=== PATIENT | female | born 1990 | race Two or more races ===

== ENCOUNTER 2017-05-01 01:15 | Emergency (ER) | payer SELFPAY ==
[~2017-05-01] VITALS: Ht 157.5 cm; Wt 88.9 kg
[2017-05-01 04:40] VITALS: BP 129/82
[2017-05-01] MEDS ORDERED: BACITRACIN-POLYMYXIN B TOPICAL OINT UD TOP ONE (05:45)
== END 2017-05-01 05:59 | disposition home or self-care (01) ==
LOC: ER 01:16
DX: S51.811A Laceration without foreign body of right forearm, initial encounter (principal); W25.XXXA Contact with sharp glass, initial encounter; Y93.89 Activity, other specified; Y99.0 Civilian activity done for income or pay; Y92.098 Other place in other non-institutional residence as the place of occurrence of the external cause
CPT/HCPCS: 12001; 12031

== ENCOUNTER 2017-08-21 18:50 | Emergency (ER) | payer SELFPAY ==
[~2017-08-21] VITALS: Ht 154.9 cm; Wt 88.5 kg
[2017-08-21 20:05] VITALS: BP 146/88
[2017-08-21] MEDS ORDERED: KETOROLAC TROMETH 60MG/2ML VIAL IM ONE (20:15)
== END 2017-08-21 21:00 | disposition home or self-care (01) ==
LOC: ER 18:51
DX: M54.9 Dorsalgia, unspecified (principal); M79.1 Myalgia
CPT/HCPCS: 96372; 99283; J1885

== ENCOUNTER 2019-12-02 13:46 | Emergency (ER) | payer SELFPAY ==
[~2019-12-02] VITALS: Ht 157.5 cm; Wt 86.2 kg
[2019-12-02 13:56] VITALS: BP 131/78
[2019-12-02] MEDS ORDERED: LIDOCAINE 1% HCL (LOCAL ANESTH.) INJ 20ML MDV IJ ONE (15:15)
== END 2019-12-02 15:44 | disposition home or self-care (01) ==
LOC: ER 13:47
DX: S61.411A Laceration without foreign body of right hand, initial encounter (principal); S61.012A Laceration without foreign body of left thumb without damage to nail, initial encounter; W26.8XXA Contact with other sharp object(s), not elsewhere classified, initial encounter; Y93.89 Activity, other specified; Y92.89 Other specified places as the place of occurrence of the external cause; Y99.8 Other external cause status
CPT/HCPCS: 12002; 99284; J2001

== ENCOUNTER 2024-03-10 10:54 | Emergency (ER) | payer OTHER ==
[~2024-03-10] VITALS: Ht 154.9 cm; Wt 97.4 kg
[2024-03-10 12:16] LABS: Basophils # (auto) 0.1 10 ^3/uL (0-0.2); Basophils % (auto) 0.7 % (0.0-2.0); Eosinophils # (auto) 0 10 ^3/uL (0-0.8); Eosinophils % (auto) 0.1 % (0.0-7.0); Hematocrit 44.8 % (36.0-46.0); Hemoglobin 15.1 g/dL (12.2-16.2); Lymphocytes # (auto) 1.4 10 ^3/uL (0.4-5.4); Lymphocytes % (auto) 10.6 % (10.0-50.0); Mean Corpuscular Hemoglobin 30.9 pg (28.0-32.0); Mean Corpuscular Hgb Conc. 33.6 g/dL (32.0-36.0); Mean Corpuscular Volume 91.9 fL (80.0-100.0); Monocytes # (auto) 0.4 10 ^3/uL (0-1.3); Monocytes % (auto) 3.3 % (0.0-12.0); Neutrophils # (auto) 11.2 10 ^3/uL (1.6-8.6); Neutrophils % (auto) 85.3 % (37.0-80.0); Red Blood Cells 4.87 10^6/uL (4.0-5.20); Red Cell Distribution Width 13.8 % (11.8-14.3); White Blood Cell 13.1 10^3/uL (4.4-10.8)
[2024-03-10 12:59] LABS: Chloride 106 mmol/L (98-107); Potassium 3.6 mmol/L (3.5-5.1); Sodium 137 mmol/L (136-145)
[2024-03-10 13:00] LABS: Anion Gap 5 (5-15); Calcium 9.7 mg/dL (8.5-10.1); Carbon Dioxide 26 mmol/L (20-30)
[2024-03-10 13:05] LABS: BUN/Creatinine Ratio 9.7 (10.0-20.0); Blood Urea Nitrogen 6 mg/dL (9-23); Glucose 103 mg/dL (74-106)
[2024-03-10] MEDS: ASPirin 81 mg TAB PO ONE (15:03)
[2024-03-10] MEDS: cloNIDine HCL 0.1 MG TAB PO ONE (15:03)
[2024-03-10 15:04] VITALS: BP 167/85; PULSE 78; RESP 18; TEMP 98.4; O2SAT 100
== END 2024-03-10 15:05 | disposition home or self-care (01) ==
LOC: ER 10:54
DX: I16.0 Hypertensive urgency (principal); R07.89 Other chest pain; F17.210 Nicotine dependence, cigarettes, uncomplicated; F15.90 Other stimulant use, unspecified, uncomplicated
CPT/HCPCS: 36415; 80048; 84484; 85025; 93005